=== PATIENT | male | born 1945 | race Caucasian/White ===

== ENCOUNTER 2016-12-08 05:45 | Inpatient (IN) | payer OTHER, BC ==
[2016-11-18 13:20] VITALS: BMI 37.0
--- NOTE | 2016-11-18 14:05 | PAT Medication Instructions ---
Service Date Nov 18, 2016. Current Home Medication List Eye Drops (Eye Drops), 1 DROP OPB HS Ibuprofen Tab (Advil), 800 MG PO PRN Losartan Potassium (Cozaar), 100 MG PO QAM Medication Instructions For Your Scheduled Surgery - Hold the following medications the morning of surgery: Losartan Potassium (Cozaar), 100 MG PO QAM Ibuprofen Tab (Advil), 800 MG PO PRN (unless otherwise indicated by surgeon) - Take the following medications as scheduled the night before surgery: Eye Drops (Eye Drops), 1 DROP OPB HS Nothing to eat or drink after midnight If you have any questions please call us at [phone] or [phone] or [phone]
--- NOTE | 2016-11-18 14:38 | DIAGNOSTIC IMAGING REPORT ---
CHEST PREADMISSION(PA/LAT) HISTORY: 71 years-old Male preadmission exam. The patient is reportedly asymptomatic. COMPARISON: Chest radiographs 10/30/2010 TECHNIQUE: Frontal and lateral views of the chest FINDINGS: Cardiomediastinal and hilar silhouettes are within normal limits. Linear subsegmental opacity of the lingula is compatible with atelectasis. There is no pneumothorax, pleural effusion or focal airspace consolidation. No overt pulmonary edema. Remote fracture deformity of the distal right clavicle is noted with advanced right AC joint osteoarthritis. Multilevel anterior endplate bridging osteophytosis of the spine is seen. IMPRESSION: No acute cardiopulmonary process. The above report was generated using voice recognition software. It may contain grammatical, syntax or spelling errors. Electronically signed by: Raffy Wheeler M.D. 11/18/2016 2:37 PM Dictated Date/Time: 11/18/2016 2:35 PM
[2016-11-18 15:02] LABS: BASO % 0.3 %; BASO ABS # 0.02 K/uL (0-0.2); COMPLETE YES; EOS % 1.5 %; IG% 0.1 %; LYMPH ABS # 1.78 K/uL (1.2-3.4); MEAN CELL VOLUME 91.7 fL (80-100); MEAN CORPUSCULAR HEMOGLOBIN 31.7 pg (25-34); MEAN CORPUSCULAR HGB CONC 34.5 g/dl (32-36); MONO % 11.3 %; NEUT % 61.8 %; PLATELET COUNT 191 K/uL (130-400); WHITE BLOOD COUNT 7.11 K/uL (4.8-10.8)
[2016-11-18 15:03] LABS: URINE APPEARANCE CLEAR (CLEAR); URINE BILIRUBIN NEG (NEG); URINE COLOR YELLOW; URINE NITRITE NEG (NEG); UROBILINOGEN NEG (NEG)
[2016-11-18 15:10] LABS: MANUAL MICROSCOPIC REQUIRED? NO; REVIEW REQ? NO
[2016-11-18 15:44] LABS: BUN/CREATININE RATIO 12.8 (10-20); CALCIUM 9.5 mg/dl (8.5-10.1); CREATININE 1.1 mg/dl (0.60-1.40); POTASSIUM 4.5 mmol/L (3.5-5.1)
[2016-11-19 07:10] LABS: ESTIMATED AVERAGE GLUCOSE 111 mg/dl; HA1C FLAG Normal (Normal)
--- NOTE | 2016-12-01 16:53 | History and Physical ---
History & Physical Date Dec 01, 2016. Chief Complaint Bilateral Knee Pain History of Present Illness Mr Tello is a 71 year old male who is here for a follow up of knee pain equally on both sides. He presents with pain on the right and left side equally. He states that the symptoms have been chronic non-traumatic. Patient would like to proceed with bilateral total knee replacements. The symptoms occur intermittently. The problem is fluctuating. Currently the patient states that the symptoms are moderate-severe. The pain is described as aching, discomforting and throbbing. The symptoms occur intermittently. The symptoms are aggravated by ascending stairs, daily activities, descending stairs, driving , first steps while awake, kneeling, movement, repetitive activities, sleeping in any position, squatting, walking and standing. Joel states that the symptoms are relieved by no specific activity. In addition to knee pain equally on both sides the patient is also experiencing decreased mobility, difficulty bending, difficulty going to sleep, limping, nighttime awakening, pain, stiffness, tenderness and weakness. Pertinent negatives include chills and fever. He has been treated with a corticosteroid injection on both sides as well as previous viscosupplementation. Past Medical/Surgical History Past Medical History 1. Hypertension 2. High Cholesterol Past Surgical History 1. right and left hip replacements 2. carpal tunnel 3. bilateral knee scopes Additional History Hepatic Disease: No Endocrine Disorder: No Kidney Disease: No Hypertension: Yes Heart Disease: No Bleeding Tendencies: No Infectious Diseases: No Allergies Coded Allergies: Horse Serum Proteins (Verified Allergy, Unknown, LEG SWELLING, 11/18/16) HORSE SERUM TETANUS CHILD Tetanus Toxoid (Verified Allergy, Unknown, LEG SWELLING, 11/18/16) Amlodipine (Verified Adverse Reaction, Unknown, dizzy-PT HAS NO MEMORY OF THIS MEDS, 11/18/16) Home Medications Scheduled Eye Drops (Eye Drops), 1 DROP OPB HS Ibuprofen Tab (Advil), 800 MG PO PRN Losartan Potassium (Cozaar), 100 MG PO QAM Physical Examination Skin: warm/dry, no rash Eyes: normal inspection, EOMI, sclerae normal ENT: normal ENT inspection, pharynx normal Head: normocephalic, atraumatic Neck: supple, no adenopathy, trachea midline Respiratory/Chest: lungs clear, normal breath sounds, no respiratory distress Cardiovascular: regular rate, rhythm, no edema, no murmur Abdomen / GI: normal bowel sounds, non tender Addiitonal Comments: Physical Exam Exam Findings Details Ankle ROM L * Active ROM - Factors: normal, Description: active pain free range of motion. Passive ROM - Factors: normal, Description: passive pain free range of motion. Ankle ROM R * Active ROM - Factors: normal, Description: active pain free range of motion. Passive ROM - Factors: normal, Description: passive pain free range of motion. Hip ROM L * Active ROM - Factors: normal, Description: active pain free range of motion. Passive ROM - Factors: normal, Description: passive pain free range of motion. Hip ROM R * Active ROM - Factors: normal, Description: active pain free range of motion. Passive ROM - Factors: normal, Description: passive pain free range of motion. Knee ROM L * Active ROM - Flexion: 100 degrees, Extension: 5 degrees, Factors: pain, Description: Active painful ROM. Knee ROM R * Active ROM - Flexion: 100 degrees, Extension: 5 degrees, Factors: pain, Description: Active painful ROM. Strength LE Normal Strength Description - Normal lower extremity: Bilateral. Knee * Inspection - Gait: Limp. Alignment - Right: varus, Left: varus. Ecchymosis - Right: negative, Left: negative. Effusion - Right: mild, Left: mild. Swelling - Right: mild, Left: mild. Maximum tenderness - Right: Medial Joint Line, Left: Medial Joint Line. Patella exam - Crepitation - Right: mild, Left: mild. Patella position - Right: neutral, Left: neutral. Knee Normal Inspection - Atrophy - Right: Absent, Left: Absent. Skin - Right: Normal, Left: Normal. Patella exam - Apprehension - Right: Negative, Left: Negative. Q-angle - Right: Normal, Left: Normal. Posterior drawer - Right: Negative, Left: Negative. Anterior drawer - Right: Negative, Left: Negative. Valgus stress - Right: Negative, Left: Negative. Varus stress - Right: Negative , Left: Negative. Extensor lag - Right: Normal, Left: Normal. Neurovascular LE Normal Neurovascular examination including reflexes, sensation , and pulses is within normal limits. Bilateral Knee X-ray: Xrays reviewed of bilateral knees showing findings consistent with degenerative joint disease including joint space narrowing, subchondral sclerosis and peripheral osteophyte formation. no acute bony pathology, overall varus alignment bilaterally. Impression: degenerative joint disease of bilateral knees with no acute bony pathology noted. Diagnosis 1. Bilateral Knee DJD Further care discussed with patient and at this point in time has failed conservative measures and would like to proceed with bilateral total knee replacements. Plan on discharge will be home with home health physical therapy. DVT prophalaxis with TEDs, SCDs and will also place on aspirin 81 mg p.o. b.i.d. for a month postop. Patient will have follow up appointment in our office two weeks post op for staple/suture removal and re-evaluation. Patient otherwise has no other questions or concerns.
[~2016-12-08] VITALS: Ht 177.8 cm; Wt 113.0 kg
[2016-12-08] VITALS (8 sets, daily range): BP systolic 116–165; BP diastolic 64–90; PULSE 83–102; TEMP 36.5–37.2; O2SAT 92–97; Ht 177.8 cm; Wt 113.0 kg
[~2016-12-08 05:45] MED LIST: EYED OPB; IBUP-103 PO; LOSA1TAB38 PO
[2016-12-08] MEDS: ROPIVACAINE 5MG/ML 30 ML 150 MG, BUPIVACAINE/EPINEPHR 0.5% MPF 30 ML, KETOROLAC TROMETH... INFIL SCH ×14 (06:00→06:01)
[2016-12-08] MEDS ORDERED: ROPIVACAINE 5MG/ML 30 ML 150 MG, BUPIVACAINE/EPINEPHR 0.5% MPF 30 ML, KETOROLAC TROMETH... INFIL SCH ×7 (06:00)
[2016-12-08] MEDS ORDERED: ACETAMINOPHEN 500 MG TAB PO SCH (06:00)
[2016-12-08] MEDS ORDERED: LACTATED RINGER'S 1000ML 500 ML IV ONE (06:00)
[2016-12-08] MEDS ORDERED: LACTATED RINGER'S 1000ML IV SCH (06:00)
[2016-12-08] MEDS ORDERED: LACTATED RINGER'S 1000ML 1,000 ML IV SCH (06:00)
[2016-12-08] MEDS ORDERED: CEFAZOLIN 2000 MG/60 ML D5W 60 ML IV SCH (06:00)
[2016-12-08] MEDS ORDERED: GABAPENTIN 300 MG CAP PO SCH (06:00)
[2016-12-08] MEDS ORDERED: FAMOTIDINE 20 MG TAB PO SCH (06:00)
[2016-12-08] MEDS ORDERED: METOCLOPRAMIDE HCL 10 MG TAB PO SCH (06:00)
[2016-12-08] MEDS ORDERED: CeleBREX 200 MG CAP PO SCH (06:00)
[2016-12-08] MEDS ORDERED: DEXAMETHASONE 4 MG TAB PO SCH (06:00)
[2016-12-08] MEDS ORDERED: LATA0.5S OP (06:20)
[2016-12-08] MEDS ORDERED: BUPIVACAINE 0.5 % 5 MG/1 ML PF 10ML VIAL ONE (06:28)
[2016-12-08] MEDS ORDERED: BUPIVACAINE 0.25% 30 ML VIAL ONE (06:28)
[2016-12-08] MEDS: TRANEXAMIC ACID INJ 1,000 MG in SODIUM CHLORIDE 0.9% 100ML 100 ML IV SCH ×2 (06:30→07:18)
--- NOTE | 2016-12-08 07:01 | History & Physical Bridge Note ---
H&P Re-Evaluation Bridge Note: I have examined the patient, reviewed the History & Physical and in the interval since the performance of the History & Physical I have noted the following changes of clinical significance: No changes noted
[2016-12-08] MEDS ORDERED: ONDANSETRON INJ 2 MG/ML 2 ML VIAL ONE (07:10)
[2016-12-08] MEDS ORDERED: LIDOCAINE HCL 2% 2 ML VIAL (20MG/ML) ONE (07:10)
[2016-12-08] MEDS ORDERED: DEXAMETHASONE SOD INJ 4 MG/ML VIAL ONE (07:10)
[2016-12-08] MEDS ORDERED: PROPOFOL IV EMULSION 10 MG/ML 20 ML VIAL IV ONE (07:10)
[2016-12-08] MEDS ORDERED: FENTANYL CITRATE INJ 50 MCG/1 ML 2 ML VIAL ONE ×2 (07:11→08:58)
[2016-12-08] MEDS ORDERED: MIDAZOLAM HCL 1 MG/ML 2ML VIAL ONE (07:11)
[2016-12-08] MEDS ORDERED: BACITRACIN 50000 UNIT VIAL ONE ×2 (07:15→07:57)
[2016-12-08] MEDS ORDERED: ORTHO JOINT ANESTHETIC ONE (07:15)
[2016-12-08] MEDS ORDERED: POVIDONE-IODINE OP SOLN 30 ML BTL ONE (07:15)
[2016-12-08] MEDS ORDERED: ATROPINE SULFATE 0.1 MG/ML 5ML SYR IV PRN (08:45)
[2016-12-08] MEDS ORDERED: EpHEDrine SULFATE INJ 50 MG/ML AMP IV PRN (08:45)
[2016-12-08] MEDS ORDERED: HYDROmorphone INJ 2 MG/ML SYR/VIAL ONE (08:52)
--- NOTE | 2016-12-08 11:38 | [facility] Operative Report ---
Operative Report Operative Date Dec 08, 2016. Pre-Operative Diagnosis Bilateral Knee Degenerative Joint Disease Post-Operative Diagnosis Bilateral Knee Degenerative Joint Disease Procedure(s) Performed Bilateral Total Knee Arthroplasty utilizing [employer] journey 2 patient matched total knee arthroplasty right size 7 femur 6 tibia 15 constrained Jillian 38 oval patella left size 7 femur 6 tibia 11 poly-[address] Rosado Administrative Operations Coordinator Surgeon(s) Emerson Guzman PA-C Estimated Blood Loss 10 mL Findings Severe end-stage Tri-Chlor milligrams joint disease bilateral knees bone-on- bone varus alignment subchondral cystic changes large muscle conservative therapy Specimens A: Left knee bone and tissue B: Right knee bone and tissue Complication(s) None Disposition Recovery Room / PACU Indications Severe end-stage tricompartmental degenerative joint disease with varus alignment subchondral cystic changes [id number] changes Nourse wants to conservative therapy plan for total knee arthroplasty posterior pain management DVT prophylaxis. Description of Procedure After proper prepping and draping of the bilateral lower extremities, an anterior midline incision was made over the region of the extensor extensor mechanism of the left knee. After meticulous hemostasis was obtained and maintained in subcutaneous tissues a medial parapatellar incision was made The patella was subluxed lateralward the medial lateral gutter were cleaned from any hypertrophic synovitis and scar tissue of the distal femoral block was placed and the distal femoral osteotomy cut was made subsequently the chamfers anterior and posterior osteotomy cuts were made utilizing the 4-in-1 block the tibia was subsequently subluxed anteriorward medial and ateral meniscal remnants were excised in their entirety remnants of the anterior and posterior cruciate ligaments were excised in their entirety excellent exposure of the proximal tibia was obtained the tibial osteotomy guide was placed on the proximal tibial osteotomy cut was made once again the knee was irrigated with copious amounts of sterile saline solution the patella was subsequently everted lateralward thickened scar tissue around the patella was removed the patella was subsequently cut utilizing a freehand technique and was drilled prepared for final preparation and placement of patella socially flexion-extension gaps were checked and the equal and symmetric trials were placed to the appropriate femoral and tibial trials with poly-spacer being placed for equal flexion and extension gaps and full range of motion including extension to 0 and flexion to 140 the trial components after having been taken to recovery range of motion was subsequently removed meticulous hemostasis was obtained and maintained subsequently a knee block injection of joint cocktail including ropivacaine 0.5 % 150 mg. Bupivacaine 0.5% epinephrine 1-200,030 mL's toradol 30 mg dexamethasone 4 mg ketamine 10 mg clonidine 100 micrograms normal saline solution 30 mg was infiltrated into the soft tissues of the posterior knee medial lateral gutters and periosteal synovium special attention was paid to protect neurovascular structures at all times subsequently trial components having been removed the knee was irrigated with sterile saline solution. debris was removed the proximal tibia was subsequently prepared and was made ready for the placement of the tibial component tibial component was also cemented and tamped into position the femoral component was subsequently placed and cemented in the position the patellar component was subsequently cemented in position because hemostasis once again obtained and maintained wound having been thoroughly irrigated with debridement and debridement lavage was performed as well as a medial parapatellar incision closed with #1 Vicryl in interrupted fashion subcutaneous was closed with #2 Vicryl skin was closed with skin clips Next, an anterior midline incision was made over the region of the extensor extensor mechanism of the right knee. After meticulous hemostasis was obtained and maintained in subcutaneous tissues a medial parapatellar incision was made The patella was subluxed lateralward the medial lateral gutter were cleaned from any hypertrophic synovitis and scar tissue of the distal femoral block was placed and the distal femoral osteotomy cut was made subsequently the chamfers anterior and posterior osteotomy cuts were made utilizing the 4-in-1 block the tibia was subsequently subluxed anteriorward medial and ateral meniscal remnants were excised in their entirety remnants of the anterior and posterior cruciate ligaments were excised in their entirety excellent exposure of the proximal tibia was obtained the tibial osteotomy guide was placed on the proximal tibial osteotomy cut was made once again the knee was irrigated with copious amounts of sterile saline solution the patella was subsequently everted lateralward thickened scar tissue around the patella was removed the patella was subsequently cut utilizing a freehand technique and was drilled prepared for final preparation and placement of patella socially flexion-extension gaps were checked and the equal and symmetric trials were placed to the appropriate femoral and tibial trials with poly-spacer being placed for equal flexion and extension gaps and full range of motion including extension to 0 and flexion to 140 the trial components after having been taken to recovery range of motion was subsequently removed meticulous hemostasis was obtained and maintained subsequently a knee block injection of joint cocktail including ropivacaine 0.5 % 150 mg. Bupivacaine 0.5% epinephrine 1-200,030 mL's toradol 30 mg dexamethasone 4 mg ketamine 10 mg clonidine 100 micrograms normal saline solution 30 mg was infiltrated into the soft tissues of the posterior knee medial lateral gutters and periosteal synovium special attention was paid to protect neurovascular structures at all times subsequently trial components having been removed the knee was irrigated with sterile saline solution. debris was removed the proximal tibia was subsequently prepared and was made ready for the placement of the tibial component tibial component was also cemented and tamped into position the femoral component was subsequently placed and cemented in the position the patellar component was subsequently cemented in position because hemostasis once again obtained and maintained wound having been thoroughly irrigated with debridement and debridement lavage was performed as well as a medial parapatellar incision closed with #1 Vicryl in interrupted fashion subcutaneous was closed with #2 Vicryl skin was closed with skin clips.. PA-C was necessary for prepping and drapping as well as wound closure of deep fascia Sub cutaneous tissue and skin and was necessary for the case. A sterile compressive dressings were placed, patient was taken to recovery in stable condition of report dictated by Alonzo I attest to the content of the Intraoperative Record and any orders documented therein. Any exceptions are noted below. I attest to the content of the Intraoperative Record and any orders documented therein. Any exceptions are noted below.
[2016-12-08] MEDS ORDERED: ONDANSETRON INJ 2 MG/ML 2 ML VIAL IV PRN (12:15)
[2016-12-08] MEDS ORDERED: MAGNESIUM HYDROXIDE SUSP 30 ML UDC PO PRN (12:15)
[2016-12-08] MEDS ORDERED: MoRPHine SULFATE 2 MG/ML CARP IV PRN ×2 (12:15→14:00)
[2016-12-08] MEDS ORDERED: BISACODYL 10 MG SUPP PR PRN (12:15)
[2016-12-08] MEDS ORDERED: TAMSULOSIN HCL 0.4 MG CAP PO PRN (12:15)
[2016-12-08] MEDS ORDERED: ALUMINUM/MAGNESIUM/SIMETH (MAALOX MAX) 30 ML UDC PO PRN (12:15)
[2016-12-08] MEDS ORDERED: HYDROmorphone INJ 1 MG/ML SYR ONE ×3 (12:41→13:34)
--- NOTE | 2016-12-08 13:12 | DIAGNOSTIC IMAGING REPORT ---
RIGHT KNEE 1 OR 2 VIEWS ROUTINE CLINICAL HISTORY: 71 years-old Male presenting with AP/LATERAL IN PACU RIGHT KNEE Right. TECHNIQUE: Frontal lateral views of the right knee were obtained. COMPARISON: None. FINDINGS: Postsurgical changes of total right hip arthroplasty with patellar resurfacing. Intra-articular and soft tissue emphysema, surgical drain, and overlying skin leandro noted. No acute fracture or malalignment. IMPRESSION: Expected postsurgical appearance status post total right knee arthroplasty with patellar resurfacing. Electronically signed by: Vadim Govea M.D. 12/08/2016 1:11 PM Dictated Date/Time: 12/08/2016 1:10 PM
--- NOTE | 2016-12-08 13:19 | DIAGNOSTIC IMAGING REPORT ---
LEFT KNEE 1 OR 2 VIEWS ROUTINE CLINICAL HISTORY: Osteoarthritis. Postop study. COMPARISON: None. DISCUSSION: There are postsurgical changes of a total left knee arthroplasty and patellar resurfacing. The femoral and tibial components appear well seated. Overlying skin leandro and surgical drains. There is air within the soft tissues consistent with recent surgery. IMPRESSION: Postsurgical changes of a total left knee arthroplasty. Electronically signed by: Qasim Mancera M.D. 12/08/2016 1:17 PM Dictated Date/Time: 12/08/2016 1:17 PM
[2016-12-08] MEDS: HYDROmorphone INJ 2 MG/ML SYR/VIAL IV PRN ×2 (13:45→13:50)
[2016-12-08] MEDS ORDERED: MoRPHine SULFATE 4 MG/ML 1 ML CARP\\VIAL IV PRN (14:00)
[2016-12-08] MEDS ORDERED: MoRPHine SULFATE 10 MG/ML CARP/VIAL IV PRN (14:00)
--- NOTE | 2016-12-08 14:02 | Anesthesiology Progress Note ---
Anesthesia Post Op Note Date & Time Dec 08, 2016 at 14:02 Vital Signs Pain Intensity: 8 Vital Signs Past 12 Hours Date Time Temp Pulse Resp B/P (MAP) Pulse Ox O2 Delivery O2 Flow Rate FiO2 12/08/16 12:47 92 20 164/87 97 12/08/16 12:47 92 20 164/87 97 12/08/16 12:47 92 20 12/08/16 12:47 92 20 12/08/16 12:42 92 19 95 12/08/16 12:42 92 19 12/08/16 12:42 92 19 95 12/08/16 12:42 92 19 12/08/16 12:41 153/95 12/08/16 12:41 153/95 12/08/16 12:37 91 15 12/08/16 12:37 91 15 12/08/16 12:37 92 15 94 12/08/16 12:37 92 15 94 12/08/16 12:36 143/91 12/08/16 12:35 89 14 12/08/16 12:35 89 14 96 12/08/16 12:31 139/90 12/08/16 12:30 86 13 12/08/16 12:30 86 13 97 12/08/16 12:26 138/78 12/08/16 12:25 86 15 96 12/08/16 12:25 87 15 12/08/16 12:21 146/78 12/08/16 12:20 36.2 86 16 146/78 96 Mask 10 12/08/16 12:20 86 14 95 12/08/16 12:20 86 14 12/08/16 06:36 36.5 83 20 138/90 96 Room Air Notes Mental Status: alert / awake / arousable, participated in evaluation Pt Amnestic to Procedure: Yes Nausea / Vomiting: adequately controlled Pain: adequately controlled Airway Patency, RR, SpO2: stable & adequate BP & HR: stable & adequate Hydration State: stable & adequate Anesthetic Complications: no major complications apparent
[2016-12-08] MEDS: CEFAZOLIN IV 2,000 MG in DEXTROSE 5% 50ML 50 ML IV SCH ×2 (16:44→23:57)
[2016-12-08] MEDS: D5W AND 1/2NSS + 20MEQ KCL 1,000 ML IV SCH (16:44)
[2016-12-08] MEDS: ACETAMINOPHEN 500 MG TAB PO SCH ×2 (16:55→21:22)
[2016-12-08] MEDS: KETOROLAC TROMETHAMINE 15 MG/ML VIAL IV. SCH ×3 (16:56→21:49)
[2016-12-08] MEDS: FERROUS GLUCONATE 324 MG TAB PO SCH (18:19)
[2016-12-08] MEDS: SENNA 8.6 MG TAB PO SCH (21:23)
[2016-12-08] MEDS: OXYCODONE HCL 10 MG TABCR (OXYCONTIN) PO SCH (21:23)
[2016-12-08] MEDS: DOCUSATE SODIUM 100 MG CAP PO SCH (21:23)
[2016-12-08] MEDS: LATANOPROST 0.005% OP SOLN 2.5 ML BTL OP SCH (21:24)
[2016-12-08] MEDS: OXYCODONE HCL IR 5 MG TAB (IMMEDIATE RELEASE) PO PRN (23:58)
[2016-12-09] VITALS (8 sets, daily range): BP systolic 109–140; BP diastolic 58–66; PULSE 87–96; TEMP 36.8–37.2; O2SAT 92–97
[2016-12-09] MEDS: KETOROLAC TROMETHAMINE 15 MG/ML VIAL IV. SCH ×4 (03:51→22:26)
[2016-12-09] MEDS: D5W AND 1/2NSS + 20MEQ KCL 1,000 ML IV SCH ×2 (05:34→10:59)
[2016-12-09] MEDS: ACETAMINOPHEN 500 MG TAB PO SCH ×2 (05:35→17:49)
[2016-12-09] MEDS: OXYCODONE HCL IR 5 MG TAB (IMMEDIATE RELEASE) PO PRN ×4 (05:41→22:27)
[2016-12-09 06:50] LABS: HEMATOCRIT 34.6 % (42-52); MEAN CELL VOLUME 91.8 fL (80-100); MEAN CORPUSCULAR HGB CONC 33.8 g/dl (32-36); MEAN PLATELET VOLUME 9.5 fL (7.4-10.4); PLATELET COUNT 162 K/uL (130-400); RED BLOOD COUNT 3.77 M/uL (4.7-6.1); WHITE BLOOD COUNT 12.62 K/uL (4.8-10.8)
[2016-12-09 07:18] LABS: CALCIUM 8.6 mg/dl (8.5-10.1); CREATININE 1.1 mg/dl (0.60-1.40); POTASSIUM 4.4 mmol/L (3.5-5.1)
--- NOTE | 2016-12-09 07:38 | Clinical Documentation Query ---
CLINICAL DOCUMENTATION QUERY Dr. KRAFT, In your clinical opinion is this patient being managed for: (x ) Acute blood loss anemia ( ) Not Agree ( ) Other explanation of clinical findings (Please Explain) ( ) Unable to determine (Please Define) ( ) Need to Discuss The medical record reflects the following clinical findings, treatment, and risk factors. Clinical Indicators: 71 yo male presenting with bilateral Knees DJD for bilateral TKA's. Baseline Hgb 15.2/Hct 44, trending down to Hgb 11.7/Hct 34.6. Orthopat drained approx 430 cc which was reinfused Treatment: Reinfusion of approx 430 cc of orthopat blood, IV fluids Risk Factors: bilateral TKA's Please clarify and document your clinical opinion in the progress notes and discharge summary. Terms such as "probable", "suspected", "likely", "questionable", "possible", or "still to be ruled out" are acceptable. IF IN AGREEMENT, YOU MUST DOCUMENT ABOVE DIAGNOSTIC STATEMENT IN DAILY PROGRESS NOTES AND DISCHARGE SUMMARY. This document is not part of the patient's record. Thank You, Bindu Ramirez RN [phone]
--- NOTE | 2016-12-09 08:19 | Orthopedic Progress Note ---
Orthopedic Progress Note Date of Service Dec 09, 2016. Subjective Post OP Day: 1 Reports: feeling well, Denies: chest pain, SOB, nausea / vomiting, light headedness, calf pain Objective calves soft nontender, N/V intact, dressing C/D/I, A&O x3, toes mobile Date Time Temp Pulse Resp B/P (MAP) Pulse Ox O2 Delivery O2 Flow Rate FiO2 12/09/16 07:25 37.0 88 17 140/66 (90) 97 Room Air 12/09/16 07:25 Room Air 12/09/16 03:58 37.1 88 18 111/65 (80) 94 Room Air 12/09/16 03:15 37.2 87 18 109/63 (78) 92 Room Air 12/09/16 02:08 36.9 90 18 119/66 (83) 92 Room Air 12/09/16 01:38 37.0 94 18 124/66 (85) 93 Room Air 12/09/16 00:01 Room Air 12/08/16 23:45 37.2 90 18 116/64 (81) 92 Room Air 12/08/16 21:15 36.7 83 16 128/65 (86) 97 Nasal Cannula 2.0 12/08/16 17:19 95 18 146/74 (98) 96 Nasal Cannula 3.0 12/08/16 16:30 Nasal Cannula 2.0 12/08/16 16:20 90 18 117/69 (85) 92 Nasal Cannula 3.0 12/08/16 15:20 36.7 95 18 143/79 (100) 92 12/08/16 14:49 92 19 165/79 (107) 94 Nasal Cannula 2.0 12/08/16 14:20 97 Nasal Cannula 2.0 12/08/16 14:20 36.7 102 16 159/79 (105) 97 Nasal Cannula 2.0 12/08/16 14:20 97 Nasal Cannula 2.0 12/08/16 14:08 99 18 12/08/16 14:08 99 18 85 12/08/16 14:06 159/92 12/08/16 14:03 99 11 12/08/16 14:03 99 11 96 12/08/16 14:01 160/78 12/08/16 13:58 99 10 12/08/16 13:58 99 10 90 9/19/17 13:56 161/77 12/08/17 13:53 98 13 95 12/08/17 13:53 98 13 17 13:51 162/94 12/08/17 13:48 96 13 87 12/08/17 13:48 96 13 17 13:46 157/80 12/08/17 13:43 95 13 17 13:43 96 13 92 17 13:41 147/82 17 13:38 95 11 17 13:38 95 11 93 17 13:36 153/91 17 13:33 95 11 17 13:33 95 11 97 17 13:31 163/84 17 13:28 95 14 17 13:28 95 14 95 17 13:26 149/90 17 13:23 96 13 95 17 13:23 96 13 17 13:21 160/87 17 13:18 96 21 93 17 13:18 96 21 12/08/16 13:16 144/87 17 13:13 96 15 93 17 13:13 96 15 17 13:12 157/82 17 13:08 93 16 96 17 13:08 94 16 17 13:06 142/87 17 13:04 161/89 17 13:03 95 12 12/08/16 13:03 95 12 158/109 97 17 12:58 93 17 98 17 12:58 93 17 12/08/16 12:57 144/84 17 12:53 92 15 17 12:53 92 15 97 17 12:51 148/92 17 12:48 91 15 17 12:48 91 15 97 17 12:47 92 20 164/87 97 17 12:47 92 20 164/87 97 17 12:47 92 20 12/08/16 12:47 92 20 12/08/16 12:42 92 19 95 12/08/16 12:42 92 19 12/08/16 12:42 92 19 95 12/08/16 12:42 92 19 12/08/16 12:41 153/95 12/08/16 12:41 153/95 12/08/16 12:37 91 15 12/08/16 12:37 91 15 12/08/16 12:37 92 15 94 12/08/16 12:37 92 15 94 12/08/16 12:36 143/91 12/08/16 12:35 89 14 12/08/16 12:35 89 14 96 12/08/16 12:31 139/90 12/08/16 12:30 86 13 12/08/16 12:30 86 13 97 12/08/16 12:26 138/78 12/08/16 12:25 86 15 96 12/08/16 12:25 87 15 12/08/16 12:21 146/78 12/08/16 12:20 36.2 86 16 146/78 96 Mask 10 12/08/16 12:20 86 14 95 12/08/16 12:20 86 14 Laboratory Results 24 Hours: Test 12/09/16 06:34 Hematocrit 34.6 % Hemoglobin 11.7 g/dL Assessment & Plan Assessment: POD 1 s/p Bilateral TKA Plan: PT/OT Planning for OPPT upon DC. Will see how he progresses. Inhouse Planning Pain Management: Toradol, Oxycontin, Morphine, PO Tylenol, Oxy IR DVT Prophylaxis: TEDs, SCDs, ASA (starting POD 2), Lovenox Discharge Planning Discharge Planning: home with oppt
[2016-12-09] MEDS: PANTOprazole SOD 40 MG TAB PO SCH (08:38)
[2016-12-09] MEDS: DOCUSATE SODIUM 100 MG CAP PO SCH ×2 (08:38→22:25)
[2016-12-09] MEDS: LOSARTAN POTASSIUM 50 MG TAB PO SCH (08:38)
[2016-12-09] MEDS: FERROUS GLUCONATE 324 MG TAB PO SCH ×3 (08:38→17:49)
[2016-12-09] MEDS: ENOXAPARIN 40 MG/0.4 ML SYR SQ SCH (08:39)
[2016-12-09] MEDS: MULTIVITAMIN TAB PO SCH (08:39)
[2016-12-09] MEDS: OXYCODONE HCL 10 MG TABCR (OXYCONTIN) PO SCH ×2 (08:42→22:25)
--- NOTE | 2016-12-09 13:03 | Discharge Instructions ---
Discharge Instructions Date of Service Dec 10, 2016. Admission Reason for Admission: Bilateral Knee Osteoarthritis Discharge Discharge Diagnosis / Problem: bilateral total knee replacements Discharge Goals Goal(s): Decrease discomfort, Improve function, Increase independence Activity Recommendations Activity Limitations: as noted below Weightbearing Status: Left weightbearing (as tolerated), Right weightbearing ( as tolerated) . Instructions / Follow-Up Instructions / Follow-Up ACTIVITY RECOMMENDATIONS: SELF CARE INSTRUCTIONS AFTER TOTAL KNEE REPLACEMENT A. You may need to continue a physical therapy program after discharge from the hospital. There are several options available to you. Your doctor will assist you in selecting the best one for you. 1. An out-patient facility 2 to 3 times a week for therapy or home therapy. 2. Continue working on all exercises taught to you in the hospital. Your goals should be to increase bending of your knee to 90 degrees and beyond and to fully straighten your knee. B. You may progress at your own pace from walking with a walker or crutches to a cane; then to no assistive devices. C. Make walking a part of your daily routine. Be up as much as comfortable with rest periods throughout the day. Rest with leg elevation is very important. Use the ice wrap frequently for the first 3-4 weeks. D. There are no restrictions on activities. You may ride in a car, shop, participate in rail transportation operator and all social activities. E. Wear the long elastic stockings (ARI hose) 20 hours a day for 2 weeks after surgery. They can be removed several times a day for laundering and for a bath. F. You may shower, no tub baths until cleared by your doctor. SPECIAL CARE INSTRUCTIONS: VERY IMPORTANT TO READ AND REVIEW A. There are a few signs you need to watch for after you are home. Call [facility] if you notice any of the followin. Increased severe knee pain. Some pain is expected especially when you exercise. 2. Increased swelling in your leg or knee; pain or swelling of the calf muscle in either lower leg. 3. Any fluid drainage from the incision. 4. Shortness of breath or chest pain. B. Please call [facility] at if you have any concerns or questions about your operation or recovery. The doctor or his nurse will return your call promptly. C. You must take antibiotics before dental work, bladder, bowel or other surgery. Your doctor will provide you with a permanent care to carry describing this precaution. IMPORTANT: * REMEMBER TO TAKE ASPIRIN, 81 MG, TWICE DAILY FOR 4 WEEKS UNLESS OTHERWISE DIRECTED. THIS IS YOUR BLOOD THINNER. * HIGH RISK PATIENTS MAY BE PRESCRIBED A STRONGER BLOOD THINNER. THIS WILL BE PROVIDED AT DISCHARGE. * CALL IF INCREASED PAIN, REDNESS, DRAINAGE OR FEVER GREATER THAT 101. * WEAR ARI HOSE 20 HOURS PER DAY FOR 2 WEEKS. * YOU MAY HAVE A LARGE BAND-AID LIKE DRESSING (SILVERON). THIS WILL REMAIN ON YOUR INCISION FOR 7 DAYS, THEN CAN BE REMOVED. IF INCISION IS LEAKING THROUGH DRESSING, CALL THE OFFICE . FOLLOW UP VISIT: If appointment is not already scheduled: Please call [facility] to make a follow-up appointment for 2 weeks after your surgery at . Current Hospital Diet Patient's current hospital diet: Regular Diet Discharge Diet Recommended Diet: Regular Diet Procedures Procedures Performed: Bilateral Total Knee Arthroplasty utilizing [employer] journey 2 patient matched total knee arthroplasty right size 7 femur 6 tibia 15 constrained Jillian 38 oval patella left size 7 femur 6 tibia 11 poly-38 oval patella Pending Studies Studies pending at discharge: no Laboratory Results Hemoglobin A1c Test 11/18/16 14:02 Range/Units Estimated Average Glucose 111 mg/dl Hemoglobin A1c 5.5 4.5-5.6 % Medical Emergencies . Who to Call and When: Medical Emergencies: If at any time you feel your situation is an emergency, please call 911 immediately. . Non-Emergent Contact Non-Emergency issues call your: Primary Care Provider, Surgeon . "Provider Documentation" section prepared by Mic Hernandez. . VTE Core Measure Inpt VTE Proph given/why not?: Enoxaparin (Lovenox)SQ (Lovenox 40mg 1 injection SQ daily x 2 weeks, then ASA 81mg po bid x 2 weeks), [facility] [place] Drug Monitoring Program Search Results: patient reviewed within database, no issues identified
[2016-12-09] MEDS: SENNA 8.6 MG TAB PO SCH (22:25)
[2016-12-09] MEDS: LATANOPROST 0.005% OP SOLN 2.5 ML BTL OP SCH (22:25)
[2016-12-10] MEDS: ACETAMINOPHEN 500 MG TAB PO SCH ×3 (00:55→08:44)
[2016-12-10] MEDS: KETOROLAC TROMETHAMINE 15 MG/ML VIAL IV. SCH ×2 (04:20→10:41)
[2016-12-10 07:25] VITALS: BP 123/70; PULSE 93; TEMP 36.9; O2SAT 96
[2016-12-10] MEDS ORDERED: ASPIRIN 81 MG ECTAB PO SCH (08:00)
--- NOTE | 2016-12-10 08:03 | Orthopedic Progress Note ---
Orthopedic Progress Note Date of Service Dec 10, 2016. Subjective Post OP Day: 2 Reports: feeling well, pain controlled w PO medications, Denies: complaints, chest pain, SOB, nausea / vomiting, light headedness, calf pain Objective calves soft nontender, N/V intact, capillary refill less than 2 sec., dressing C /D/I, A&O x3, toes mobile Date Time Temp Pulse Resp B/P (MAP) Pulse Ox O2 Delivery O2 Flow Rate FiO2 12/10/16 07:25 36.9 93 16 123/70 (87) 96 Room Air 12/09/16 23:54 Room Air 12/09/16 23:05 37.1 89 18 128/58 (81) 97 Room Air 12/09/16 15:45 Room Air 12/09/16 14:58 36.8 96 18 119/62 (81) 94 Room Air 12/09/16 11:23 91 96 Assessment & Plan Assessment: POD 2 s/p Bilateral TKA Plan: PT/OT Planning for OPPT upon DC. Will see how he progresses, possible d/c after PT today Discharge Planning Discharge Planning: home with oppt
[2016-12-10] MEDS ORDERED: RXC5 PO (08:06)
[2016-12-10] MEDS ORDERED: LVNIS40 SQ (08:06)
[2016-12-10] MEDS ORDERED: ONDA8TAB6 PO (08:06)
[2016-12-10] MEDS ORDERED: ACET-24 PO (08:06)
[2016-12-10] MEDS ORDERED: CLC100 PO (08:06)
[2016-12-10] MEDS ORDERED: OXYSR10 PO (08:06)
[2016-12-10] MEDS: DOCUSATE SODIUM 100 MG CAP PO SCH (08:41)
[2016-12-10] MEDS: PANTOprazole SOD 40 MG TAB PO SCH (08:41)
[2016-12-10] MEDS: FERROUS GLUCONATE 324 MG TAB PO SCH ×2 (08:41→12:30)
[2016-12-10] MEDS: OXYCODONE HCL 10 MG TABCR (OXYCONTIN) PO SCH (08:41)
[2016-12-10] MEDS: OXYCODONE HCL IR 5 MG TAB (IMMEDIATE RELEASE) PO PRN ×2 (08:42→13:05)
[2016-12-10] MEDS: LOSARTAN POTASSIUM 50 MG TAB PO SCH (08:42)
[2016-12-10] MEDS: ENOXAPARIN 40 MG/0.4 ML SYR SQ SCH (08:43)
[2016-12-10] MEDS: MULTIVITAMIN TAB PO SCH (08:43)
--- NOTE | 2016-12-17 15:25 | DISCHARGE SUMMARY ---
DISCHARGE DIAGNOSIS: Degenerative joint disease, bilateral knees. SECONDARY DIAGNOSES: Hypertension and hypercholesterolemia. CONSULTS: None. COMPLICATIONS: None. PROCEDURES: Bilateral total knee arthroplasty performed by Dr. Rosado on 12/08/2016. BRIEF HISTORY: As dictated in the history and physical. HOSPITAL SUMMARY: The patient was admitted on the above date and had the above-noted surgery performed, which he tolerated well. On the first postoperative day, he was feeling well and had no complaints. Calves were soft and nontender, neurovascularly intact. Dressings clean, dry and intact. Toes were mobile. Vital signs were stable. He was afebrile. Hemoglobin was 11.7 and he was started on physical therapy protocol and continued on DVT prophylaxis and pain management. He was planning on an outpatient PT upon discharge. The rest of his stay was essentially uneventful. On his second postoperative day, he was feeling well and pain was controlled. He had no complaints. Calves were soft and nontender. Dressings clean, dry and intact. Toes were mobile. Neurovascular intact. Vital signs were stable. He was afebrile. He was progressing with his physical therapy and it was felt he could be discharged to home. For further review, please see chart. LABORATORY AND X-RAY DATA: As per chart. DISCHARGE INSTRUCTIONS: The patient was discharged to home in satisfactory condition on 12/10/2016. DIET: Regular. ACTIVITY: Weightbearing as tolerated right and left lower extremities. Follow TK instruction sheets and special care instructions as noted. Follow up with Dr. Rosado in 2 weeks. The patient is to call for an appointment if one has not been made for you. DISCHARGE MEDICATIONS: Acetaminophen 1000 mg p.o. q. 8 hours, Colace 100 mg p.o. b.i.d., enoxaparin 40 mg subQ q. 24 hours for 12 days and then after 12 days stop taking enoxaparin and start taking aspirin 81 mg p.o. b.i.d. for 14 days, Zofran 8 mg p.o. q. 8 hours p.r.n., OxyContin 10 mg p.o. q. 12 hours, and oxycodone 5-10 mg p.o. q. 4 hours p.r.n. Resume your Xalatan and Cozaar medications and stop taking ibuprofen.
== END 2016-12-10 13:10 | disposition home health service (06) | DRG 462 ==
LOC: C.ACU 05:45 → C.3E 07:15 → ENRESERV 13:23
PROVIDERS: ADMIT Orthopaedic Surgery; ATTEND Orthopaedic Surgery
PROC: 0SRD0J9 Replacement of Left Knee Joint with Synthetic Substitute, Cemented, Open Approach (ICD-10-PCS; principal; 2016-12-08 08:15)
PROC: 0SRC0J9 Replacement of Right Knee Joint with Synthetic Substitute, Cemented, Open Approach (ICD-10-PCS; principal; 2016-12-08 08:15)
DX: M17.0 Bilateral primary osteoarthritis of knee (principal); M21.162 Varus deformity, not elsewhere classified, left knee; M21.161 Varus deformity, not elsewhere classified, right knee; I10 Essential (primary) hypertension; E66.9 Obesity, unspecified; Z68.37 Body mass index [BMI] 37.0-37.9, adult; Z79.899 Other long term (current) drug therapy; Z96.643 Presence of artificial hip joint, bilateral